=== PATIENT | female | born 1990 | race Caucasian/White ===

== ENCOUNTER 2016-05-23 10:40 | Emergency (ER) | payer BC ==
--- NOTE | ~2016-05-23 | CR17 ---
[facility] of [facility] RADIOLOGY TEXT RESULTS PATIENT: GEORGE PEREZ LOCATION: [facility] : [birth year] UNIT #: [id number] AGE: [address]: Tripp Coles SEX: F ORDER DR: [id number] [facility] [address] [place], [place] [address] [id number] MR#: [id number] #: [id number] NAME: GEORGE PEREZ : 1990 SEX: F STUDY DATE/TIME: UNIT: [facility] ROOM: STUDY DESCRIPTION: CR Ankle 2 Views Lt Attending Physician: Tripp Coles Ordering Physician: Ed Cory Monique M.D. Primary Care Physician: [facility] Frank MEDICAL IMAGING REPORT This report is preliminary unless electronic signature is present EXAM Left ankle 3 views 05/23/2016 1007 hours HISTORY Twisting injury with foot and ankle injured yesterday. Pain and swelling proximal foot and ankle. COMPARISON None FINDINGS AP, lateral and oblique views of the ankle demonstrate no soft tissue swelling medially and laterally. There is no ankle fracture. Nondisplaced proximal left fifth metatarsal fracture noted. IMPRESSION 1. There is no ankle fracture or dislocation. 2. Proximal fifth metatarsal fracture noted better demonstrated on today's foot films. Dictated by... Albania Gates M.D. THIS IS AN ELECTRONICALLY VERIFIED REPORT Albania Gates M.D. at 05/23/2016 2:29 PM SCOTTIE/tahir TD: 05/23/2016 11:22 JOB #: [id number] MEDICAL IMAGING REPORT Page 1 of 1 COPY
--- NOTE | ~2016-05-23 | CR123 ---
[facility] A Service of [facility] RADIOLOGY TEXT RESULTS PATIENT: GEORGE PEREZ LOCATION: [facility] : [birth year] UNIT #: [id number] AGE: [address]: Tripp Coles SEX: F ORDER DR: [id number] [facility] [address] [place], [place] [address] [id number] MR#: [id number] #: [id number] NAME: GEORGE PEREZ : 1990 SEX: F STUDY DATE/TIME: UNIT: [facility] ROOM: STUDY DESCRIPTION: CR Foot 2 Views Lt Attending Physician: Tripp Coles Ordering Physician: Chandana Monique M.D. Primary Care Physician: On License Of [facility], MEDICAL IMAGING REPORT This report is preliminary unless electronic signature is present EXAM Left foot 3 views 05/23/2016 1007 hours CLINICAL HISTORY Twisting injury yesterday with pain and swelling in the foot and ankle since injury yesterday. COMPARISON None. FINDINGS AP, lateral and oblique views demonstrate a transverse nondisplaced fracture of the proximal fifth metatarsal. Foot is otherwise negative. IMPRESSION There is an acute, closed nondisplaced transverse fracture of the proximal fifth metatarsal. STAT * RESULT Dictated by... Albania Gates M.D. THIS IS AN ELECTRONICALLY VERIFIED REPORT Albania Gates M.D. at 05/23/2016 2:28 PM SCOTTIE/sasha TD: 05/23/2016 10:41 JOB #: [id number] MEDICAL IMAGING REPORT Page 1 of 1 COPY
[~2016-05-23 10:40] MED LIST: LORTAB 7.51 TAB 7.5/ PO; YAZ 28 TABLET1 TAB PO
== END 2016-05-23 11:10 | disposition home or self-care (01) ==
LOC: CFTX 10:40
DX: S92.352A Displaced fracture of fifth metatarsal bone, left foot, initial encounter for closed fracture (principal); F32.9 Major depressive disorder, single episode, unspecified; E03.9 Hypothyroidism, unspecified; X58.XXXA Exposure to other specified factors, initial encounter; Y92.009 Unspecified place in unspecified non-institutional (private) residence as the place of occurrence of the external cause
CPT/HCPCS: 29540; 73600; 73620; 99283